=== PATIENT | female | born 2000 | race Asian ===

== ENCOUNTER 2021-10-18 15:24 | Inpatient (IN) ==
[~2021-10-18 15:24] MED LIST: LACTATED RINGER'S 1,000 ML IV PRN
[2021-10-18] MEDS ORDERED: PENICILLIN G POTASSIUM 6 MU in DEXTROSE 5% 250 ML IV ONE (15:45)
[2021-10-18 15:59] LABS: Hematocrit (blood only) 38.4 % (37-47); Hemoglobin 13.6 g/dL (12.0-16.0); Mean Corpuscular Hemoglobin 31.9 pg (25-34); Mean Corpuscular Hgb Conc 35.4 g/dL (32-36); Mean Corpuscular Volume 90.1 fL (80-100); Mean Platelet Volume 9.2 fL (7.4-10.4); Platelet Count 236 K/uL (130-400); RDW Coefficient of Variation 12.7 % (11.5-14.5); RDW Standard Deviation 41.5 fL (36.4-46.3); Red Blood Count 4.26 M/uL (4.2-5.4); White Blood Count 12.48 K/uL (4.8-10.8)
[2021-10-18] MEDS ORDERED: OXYTOCIN 30 UNITS/500 ML BAG IV PRN (19:25)
--- NOTE | 2021-10-18 19:46 | History & Physical Report ---
Date of Service October 18, 2021 Assessment & Plan (1) GBS (group B Streptococcus carrier), +RV culture, currently : (2) Supervision of normal intrauterine in primigravida: (3) SROM (spontaneous rupture of membranes): Plan: Mikaela is a 21-year-old minute 39 weeks 4 days gestational age For spontaneous rupture of membranes. 1. Fetus: Reactive NST 2. Labor: Not in labor. Will start pitocin. 3. GBS positive: PCN 4. Vital: WNL Admission and Anticipated Discharge Date Admission Date: October 18, 2021 History of Present Illness Primary Care Provider: NO PCP Mikaela is a 21-year-old at 39 weeks 4 days gestational age presents with spontaneous rupture of membranes. Patient denies any significant contractions or vaginal bleeding. Patient reporting good movement. complicated by GBS positive, rubella nonimmune and history of chlamydia infection at 8 weeks. Test of cure negative at 24 and 36 weeks. LABS: OB Labs: Blood Type B Positive 05/08/21 Antibody Screen NEGATIVE 05/08/21 Hemoglobin 11.9 g/dL (12.0-16.0) L 08/05/21 Hematocrit 35.1 % (37-47) L 08/05/21 Mean Corpuscular Volume 85.6 fL (80-100) 05/08/21 Platelet Count 299 K/uL (130-400) 05/08/21 Rubella IgG Antibody Non Immune (Immune) L 05/08/21 Rapid Plasma Reagin Nonreactive (Nonreactive) 05/08/21 Hepatitis B Surface Antigen Neg (Neg) 05/08/21 HIV (1&2) Ab and P24 Ag, 4th Gener Neg (Neg) 05/08/21 Glucose 1 Hour 50 gm Load 134 mg/dl (70-130) H 08/05/21 OB Optional Labs: Chlamydia trachomatis RNA NOT DETECTED (NOT DETECTED) 09/30/21 Neisseria gonorrhoeae RNA NOT DETECTED (NOT DETECTED) 07/10/21 Labs Reviewed: low risk panorama--akh neg cf/sma--ak retest ct/gc neg 07/10--[facility] Allergies Allergy/AdvReac Type Severity Reaction Status Date / Time No Known Allergies Allergy Verified 10/14/21 09:12 Home Medications Medication Instructions Recorded Confirmed Type prenat.vits,aung,jxo-ffzo-lajts 1 tab PO DAILY 04/10/21 10/18/21 History Patient History Medical History (Updated 10/18/21 @ 19:47 by Sebastien Krause MD) Asthma Surgical History (Updated 04/24/21 @ 12:04 by Magi Lan MD, FACOG) H/O wisdom tooth extraction Family History (Updated 04/10/21 @ 07:41 by Christa Palm) Other Adopted Social History (Updated 04/10/21 @ 07:49 by Christa Palm) Smoking Status: Never smoker Hx Alcohol Use: No Hx Substance Use: No Preferred Language: German Communication Ability: Effective Indian Trader Required: No Beliefs That Will Affect Care: None marital status: Single marital status details: Denilson (22) [phone] Current Living Situation: Significant Other Current Living Situation Comment: Lives with significant other current occupational status: employed current occupation: answer phones at apartment complex Other Information That Helps Us Care for You: No Feels Safe at Home: Yes Safety Concerns: Feels Safe At This Time Physical Exam Genitourinary: Manual OB Exam: + cervical dilation 1 cm, + cervical effacement 70% and + station high OB Exam Monitor Tracing: + external FHT monitor used, + external uterine monitor used and + category I cervical exam per nurse Results & Data ([facility]) Vital Signs (Past 12 Hours) Vital Signs Temp Pulse Resp BP 10/18/21 19:21 73 102/67 10/18/21 18:57 36.7 C 18 10/18/21 17:00 37.3 C 18 10/18/21 15:01 110 H 118/71 10/18/21 14:55 37.0 C 110 H 18 Coding Level of Care Code None Diagnoses GBS (group B Streptococcus carrier), +RV culture, currently O99.820 Supervision of normal intrauterine in primigravida Z34.00 SROM (spontaneous rupture of membranes)
[2021-10-18] MEDS: PENICILLIN G POTASSIUM 3 MU in DEXTROSE 5% 100 ML IV PRN (20:20)
[2021-10-18] MEDS ORDERED: ePHEDrine sulfate 50 MG/ML AMP ONE (21:26)
[2021-10-18] MEDS ORDERED: fentaNYL 2MCG/ML ROPIVACAINE 1.25MG/ML 100 ML BAG EPI ONE (21:27)
[2021-10-18] MEDS ORDERED: BUPIVACAINE 0.25% 30 ML VIAL ONE (21:27)
[2021-10-18] MEDS ORDERED: SODIUM CHLORIDE 0.9% INJ 10 ML VIAL ONE (21:27)
[2021-10-18] MEDS ORDERED: fentaNYL citrate 100 MCG/2 ML VIAL ONE (21:27)
[2021-10-18] MEDS ORDERED: NALOXONE HCL 0.4 MG/1 ML VIAL/CARP IV PRN (22:04)
[2021-10-18] MEDS ORDERED: ONDANSETRON INJ 2 MG/ML 2 ML VIAL IV PRN (22:04)
[2021-10-18] MEDS ORDERED: ePHEDrine sulfate 50 MG/ML AMP IV PRN (22:04)
[2021-10-18] MEDS ORDERED: NALOXONE HCL 1 MG in SODIUM CHLORIDE 0.9% 1000ML 1,000 ML IV PRN (22:04)
[2021-10-18] MEDS ORDERED: NALBUPHINE HCL INJ 10 MG/ML AMP IV PRN (22:04)
[2021-10-18] MEDS ORDERED: fentaNYL 2MCG/ML ROPIVACAINE 1.25MG/ML 100 ML BAG EPI PRN (22:04)
[2021-10-18] MEDS ORDERED: diphenhydrAMINE 50 MG/ML VIAL IV PRN (22:04)
--- NOTE | 2021-10-18 22:04 | Anesthesiology Consultation ---
Date of Service October 18, 2021 Assessment & Plan Chart Review Chart Review: Patient NOT seen in Pre Admission Testing and Acceptable Risk for Labor Epidural Consults Requested none ASA ASA2 Proposed Anesthesia Anesthesia Type: Labor Epidural Risk / Benefits Reviewed With: PT / POA / Parent / Guardian, Accepts Plan and Informed Consent Obtained History Height/Weight Height: 5 ft 3 in Weight: 80.286 kg Allergies Allergy/AdvReac Type Severity Reaction Status Date / Time No Known Allergies Allergy Verified 10/14/21 09:12 Medications Home Medications Medication Instructions Recorded Confirmed Last Taken prenat.vits,aung,lyd-cojz-njphu 1 tab PO DAILY 04/10/21 10/18/21 10/17/21 Active Medications Generic Name Dose Route Start Last Admin Trade Name Freq PRN Reason Stop Dose Admin Lactated Ringer's 1,000 mls @ 125 mls/hr 10/18/21 15:22 10/18/21 21:40 Lr IV 10/20/21 15:21 999 mls/hr .Q8H PRN Infusion L&D Protocol Protocol Penicillin G Potassium 3 mu/ 106 mls @ 100 mls/hr 10/18/21 18:22 10/18/21 20:20 Dextrose IV 10/28/21 18:21 100 mls/hr Q4H PRN Administration GBS(+) Until Delivery Oxytocin 30 units in 500 mls @ 6 mls/hr 10/18/21 19:25 10/18/21 21:02 Pitocin IV 10/20/21 19:24 0.36 units/hr .Q24H PRN 6 mls/hr Labor Induction/Augmentation Titration Protocol 0.36 UNITS/HR Past Medical History Medical History (Updated 10/18/21 @ 19:47 by Sebastien Krause MD) Asthma Exercise / Class Metabolic Activity II 4-5 Yardwork/Stairs/Walk up hill Past Family History Family History (Updated 04/10/21 @ 07:41 by Christa Palm) Other Adopted Past Surgical History Surgical History (Updated 04/24/21 @ 12:04 by Magi Lan MD, FACOG) H/O wisdom tooth extraction Past Anesthesia History No Hx of Anesthesia Complications and No Family Hx of Anesthesia Complications History of PONV No Hx of PONV and No Hx of Motion Sickness Social History Smoking Status: Never smoker Hx Alcohol Use: No Hx Substance Use: No Physical Exam Vital Signs Last Vital Signs Temp 37.2 C 10/18/21 20:22 Pulse 90 10/18/21 22:02 Resp 18 10/18/21 20:22 BP 106/61 10/18/21 22:02 Pulse Ox 98 10/18/21 22:01 ENMT Mouth: no dentition abnormality Thyromental Distance: > or= 3.5 Finger Breadths Mallampati Class: II Neck normal visual inspection Respiratory normal respiratory effort Auscultation: lungs clear to auscultation bilaterally Cardiovascular Rate/Rhythm: regular rate and regular rhythm Psychiatric Orientation: alert Testing Laboratory Results 10/18/21 15:51
[2021-10-19] MEDS: PENICILLIN G POTASSIUM 3 MU in DEXTROSE 5% 100 ML IV PRN ×2 (00:09→04:16)
[2021-10-19] MEDS ORDERED: bisacodyL 10 MG SUPP PR PRN (06:38)
[2021-10-19] MEDS ORDERED: OXYTOCIN 30 UNITS/500 ML BAG IV PRN (06:38)
[2021-10-19] MEDS ORDERED: ACETAMINOPHEN 325 MG TAB PO PRN (06:38)
[2021-10-19] MEDS ORDERED: DIPHTHERIA/TETANUS/PERTUSSIS 0.5 ML SYR/VIAL IM ONE (06:38)
[2021-10-19] MEDS ORDERED: HYDROCORTISONE ACETATE 25 MG SUPP PR PRN (06:38)
[2021-10-19] MEDS ORDERED: BENZOCAINE 20% AER SPR 82.5 GM CAN EXT PRN (06:38)
[2021-10-19] MEDS ORDERED: miSOPROStoL 200 MCG TAB PR ONE (06:39)
[2021-10-19] MEDS ORDERED: METHYLERGONOVINE MALEATE 0.2 MG/ML AMP IM ONE (06:39)
[2021-10-19] MEDS ORDERED: METHYLERGONOVINE MALEATE 0.2 MG/ML AMP ONE (06:43)
[2021-10-19] MEDS ORDERED: miSOPROStoL 200 MCG TAB ONE (06:43)
[2021-10-19] MEDS: OXYTOCIN 30 UNITS/500 ML BAG IV PRN ×2 (06:46→07:55)
--- NOTE | 2021-10-19 08:47 | Anesthesia Procedure Note ---
Date of Service October 19, 2021 Anesthesia Post Epidural Note Vital Signs Vital Signs: Temp Pulse Resp BP Pulse Ox 37.2 C 82 20 114/68 97 10/19/21 07:05 10/19/21 08:46 10/19/21 07:05 10/19/21 08:46 10/19/21 06:46 Notes Mental Status: alert / awake / arousable and participated in evaluation Nausea / Vomiting: adequately controlled Pain: adequately controlled Airway Patency, RR, SpO2: stable & adequate BP & HR: stable & adequate Hydration State: stable & adequate Neuraxial Anesthesia: was administered and sensory block is resolving Anesthetic Complications: no major complications apparent and Pt Satisfied with anesthetic care Epidural: Removed without complications and With tip intact
[2021-10-19] MEDS: FERROUS SULFATE 325 MG TAB PO SCH (09:02)
[2021-10-19] MEDS: DOCUSATE SODIUM 100 MG CAP PO SCH (09:02)
[2021-10-19] MEDS: PRENATAL VITAMIN 1 TAB PO SCH (09:02)
[2021-10-19] MEDS: IBUPROFEN 600 MG TAB PO PRN ×2 (09:03→16:47)
--- NOTE | 2021-10-19 11:02 | Delivery Summary ---
DATE OF SERVICE: 10/19/2021 PROCEDURE: Normal spontaneous vaginal delivery with bilateral labial lacerations and a right vaginal laceration repair. SURGEON: Sebastien Krause MD. PREOPERATIVE DIAGNOSES: 1. Single intrauterine at 39 weeks 5 days gestational age. 2. Spontaneous rupture of membranes. 3. Group B streptococcus positive. 4. History of chlamydia during . 5. Rubella nonimmune. POSTOPERATIVE DIAGNOSES: 1. Single intrauterine at 39 weeks 5 days gestational age. 2. Spontaneous rupture of membranes. 3. Group B streptococcus positive. 4. History of chlamydia during . 5. Rubella nonimmune. 6. Status post procedure. ESTIMATED BLOOD LOSS: 400 mL. DRAINS: Straight cath for 15 mL. COMPLICATIONS: None. FINDINGS: Viable male infant with weight pending, Apgars of 8 and 9 at one and five minutes respecti iwona. INDICATIONS: Mikaela is a 21-year-old , admitted at 39 weeks 4 days gestational age with presponta neous rupture of membranes, not in labor. The patient was allowed 3-4 hours to allow time for sponta neous labor to ensue. However, the patient was noting no significant contractions after 4 hours. Ox ytocin was started per regular protocol. The patient progressed well in labor and received an epidur al for anesthesia. She was GBS positive, treated x4 with penicillin. DESCRIPTION OF PROCEDURE: The patient progressed to 10 cm dilated, 100% effaced, positive 2 station, pushed over intact perineum with epidural anesthesia and delivered a viable male infant, weight and Apgars as noted above. Head of the delivered in ANA position, restituted to right transverse . No nuchal cord was noted. Body and shoulders quickly followed. was noted to be vigorous soon after delivery and 1 minute delayed cord clamping was initiated. Cord was then double clamped a nd cut. remained on maternal abdomen. Cord blood was obtained. Attention was then turned t o delivery of the placenta, which was delivered intact, 3-vessel cord, with gentle cord traction. Pl acenta was noted to be intact. The patient was noted to have a lower uterine segment atony, bladder was drained for only 15 mL, after which she was given Methergine. On inspection of the perineum, vag werner, and cervix, there was noted to be bilateral labial lacerations and a right superficial vaginal l aceration, which were all repaired with 3-0 Vicryl interrupted stitch. The patient was given 800 mcg of Cytotec post-delivery for the lower uterine segment atony and the decision was made to end the ca se at that time. Needle, sponge, and instrument counts were correct x2. Job ID: [id number]
[2021-10-20] MEDS: IBUPROFEN 600 MG TAB PO PRN ×2 (01:12→08:35)
[2021-10-20] MEDS: DOCUSATE SODIUM 100 MG CAP PO SCH ×2 (01:12→08:35)
[2021-10-20 06:12] LABS: Hematocrit (blood only) 32.1 % (37-47); Hemoglobin 11.2 g/dL (12.0-16.0)
--- NOTE | 2021-10-20 07:14 | Obstetrical Progress Note ---
Date of Service <Juana Giang MD - Last Filed: 10/20/21 07:13> October 20, 2021 Assessment & Plan <Juana Giang MD - Last Filed: 10/20/21 07:13> (1) Encounter for care and examination after delivery: PPD 1: stable, routine management * GBS+, RI, Rh+ * patient voiding and ambulating without difficulty * pain well controlled on analgesia * tolerating regular diet * * anticipate d/c today * 6-week OB outpatient follow-up <Magi Lan MD, FACOG - Last Filed: 10/20/21 08:13> (1) Encounter for care and examination after delivery: Subjective <Juana Giang MD - Last Filed: 10/20/21 07:13> Mikaela is a 21 y/o female who is now PPD #1 following spontaneous vaginal delivery at 39.5 weeks. Reports feeling well overall this morning. Minimal abdominal cramping pain well managed on analgesics. Voiding well. Tolerating meals well and able to ambulate on her own. Lochia is much improved this morning. . Review of Systems Denies fever, chills, sweats Denies shortness of breath, difficulty breathing, chest pain, palpitations, chest pressure. Denies breast pain. Denies dysuria. Denies headache or changes in vision Review of Systems All systems reviewed & are unremarkable except as noted in HPI & below Physical Exam <Juana Giang MD - Last Filed: 10/20/21 07:13> General: Alert, oriented. No acute distress. Cardiac: Regular rate and rhythm, no murmurs/rubs/gallops. Respiratory: Clear to auscultation bilaterally a/p, no wheezes/rales/rhonchi. No increased work of breathing. Symmetrical chest rise. No respiratory distress. Abdomen: Soft, nontender, nondistended. Bowel sounds present. Uterus: Uterine fundus firm, palpable at the level of the umbilicus. Lower Extremities: No lower extremity edema or swelling. No deep calf pain. Jenny n's negative bilaterally.. Results & Data ([facility]) <Juana Giang MD - Last Filed: 10/20/21 07:13> Vital Signs (Past 12 Hours) Vital Signs Temp Pulse Resp BP Pulse Ox 10/20/21 03:55 36.8 C 98 H 16 109/74 10/19/21 20:00 36.7 C 84 18 110/72 98 <Magi Lan MD, FACOG - Last Filed: 10/20/21 08:13> Co-Signing Physician Notes Resident Physician Supervision Note: I was present with Dr. Giang during the history and exam. I discussed the case with the resident and agree with the findings and plan as documented in the note. Any exceptions or clarifications are listed here: stable doing well. eating, voiding, ambulating. no bleeding issues. going well. wants to go home. instructions reviewed and f/u 6wkpp check reviewed. Documented By: Magi Lan MD, FACOG Resident Activity Tracking <Juana Giang MD - Last Filed: 10/20/21 07:13> Resident Involvement: Resident Care Provided Care Provided: OB Delivery
[2021-10-20] MEDS: FERROUS SULFATE 325 MG TAB PO SCH (08:34)
[2021-10-20] MEDS: PRENATAL VITAMIN 1 TAB PO SCH (08:34)
[2021-10-20 10:28] VITALS: O2SAT 99
[2021-10-20 15:45] VITALS: BP 121/73; PULSE 90; TEMP 98.1
[2021-10-20] MEDS ORDERED: bisacodyL 5 MG TABEC PO SCH (20:00)
== END 2021-10-20 18:24 | disposition home or self-care (01) | DRG 807 ==
LOC: 4S1 → 4E1 10-19 09:16